=== PATIENT | female | born 1960 | race Caucasian/White ===

== ENCOUNTER 2023-12-05 19:46 | Emergency (ER) | payer MEDICARE, OTHER, SELFPAY ==
[2023-12-05] VITALS (7 sets, daily range): BP systolic 144–178; BP diastolic 78–89; PULSE 65–71; RESP 16–24; TEMP 36.9; O2SAT 93–96; BMI 27.4
--- NOTE | 2023-12-05 20:03 | DI.RAD.S_ITS ---
PROCEDURE: XR WRIST LT MIN 3V INDICATIONS: fall/injury/deformity TECHNIQUE: A total of 4 views of the wrist were acquired. COMPARISON: None. FINDINGS: Bones: No dislocations. No suspicious bony lesions. There is an impacted dorsally angulated comminuted intra-articular distal radius fracture but no definite distal ulna fracture is found. Soft tissues: No suspicious soft tissue calcifications. IMPRESSION: Colles'fracture distal radius. Intra-articular dorsal angulation morphology distortion. Dictated by: Sreekanth Barroso M.D. on 12/05/2023 at 20:46 Approved by: Sreekanth Barroso M.D. on 12/05/2023 at 20:47
[2023-12-05] MEDS: HYDROMORPHONE 0.5 MG INJ IV (22:29)
--- NOTE | 2023-12-05 23:55 | ED_ITS ---
HPI - Extremity Injury (Upper) General Chief Complaint: Extremity Injury, Upper Stated Complaint: lt wrist injury Time Seen by Provider: 12/05/23 22:06 Source: patient Mode of arrival: Ambulatory History of Present Illness HPI narrative: 63-year-old female was walking her dog who pulled away and tucked at her on the leash, causing her to fall forward into the side, complaining of left wrist area pain with significant swelling. She denies pain to her left clavicle, shoulder, upper arm, elbow, proximal forearm. No pain to her left fingers. She denies pain to her right upper extremity, and to both lower extremities. She also denies pain or injury to her head, neck, upper back, lower back, chest, abdomen, pelvis. She does not take blood thinner medications. She has not eaten for a number of hours. She has not had any problems with prior surgeries or procedures. Related Data Home Medications Medication Instructions Recorded Confirmed CA PANTOTHENATE/FOLIC ACID/VIT 1 PO AMINS ##0 07/02/11 (MULTIVITAMIN) Previous Rx's Medication Instructions Recorded oxycodone-acetaminophen 5 mg-325 1 tab PO Q6H PRN pain #20 tabs 12/06/23 mg tablet Allergies Allergy/AdvReac Type Severity Reaction Status Date / Time No Known Drug Allergies Allergy Verified 12/05/23 20:03 Review of Systems Review of Systems Narrative: per HPI Patient History Social History Smoking Status: Never smoker Smoking Status: Never smoker alcohol intake frequency: holidays/special occasions only Substance Use Type: does not use Exam Narrative Exam Narrative: GENERAL: Well-developed patient, in mild distress. HEAD: Atraumatic. Normocephalic. EYES: Pupils equal round and reactive. Extraocular motions intact. No scleral icterus. No injection or drainage. ENT: Nose without bleeding, purulent drainage. Throat without erythema, tonsillar hypertrophy or exudate. Airway patent. NECK: Trachea midline. Non tender CARDIOVASCULAR: Regular rate and rhythm without murmurs, gallops, or rubs. RESPIRATORY: Clear to auscultation. Breath sounds equal bilaterally. No wheezes, rales, or rhonchi. GASTROINTESTINAL: Abdomen soft, non-tender, nondistended. EXTREMITIES: Some swelling to left ring finger, ring removed. Some tenderness and swelling to left dorsal wrist, with some gross deformity. Distal cap refill fingers intact. Distal fingers intact to light touch. No tenderness to proximal left forearm, left elbow, left arm, left shoulder, left clavicle. No deformity right upper extremity or bilateral lower extremity. No edema or joint tenderness. BACK: Nontender without deformity or crepitance. No flank tenderness. NEURO: AOx3. SKIN: No rash or erythema of visible areas Initial Vital Signs Initial Vital Signs: Vital Signs Temperature 98.4 F 12/05/23 19:57 Pulse Rate 66 12/05/23 19:57 Respiratory Rate 16 12/05/23 19:57 Blood Pressure 178/89 H 12/05/23 19:57 Pulse Oximetry 96 12/05/23 19:57 Oxygen Delivery Method Room Air 12/05/23 19:57 Procedures Procedural Sedation Time of procedure: 01:08 Consent signed: Yes Time out performed: Yes Indication: fracture/dislocation reduction Presedation Evaluation: Low risk by past medical history, good open mouth jaw position, no anticipated difficult airway ASA Class: I Mallampati Airway Classification: Class I Time of Last PO Intake: 17:00 Preparation: court recording monitor applied, pulse oximeter, capnometry used, supplemental O2 applied, reversal agents at bedside, suction/airway equipment at bedside and IV secured IV Propofol dose (mg): 200 ED Sedation Level: Moderate (Concious) Patient Tolerated Procedure: Well Complications: none Additional Comments: Returned to preprocedure neuro baseline, tolerated procedure well. Course Orders Ordered: ED Orders 12/05/23 20:03 XR wrist LT min 3V Stat 12/06/23 00:43 XR wrist LT 2V Stat Discontinued Medications Hydromorphone HCl (Hydromorphone 0.5 Mg Inj) 0.5 mg IV NOW ONE Stop: 12/05/23 22:20 Last Admin: 12/05/23 22:29 Dose: 0.5 mg Documented By: AB Hydromorphone HCl (Hydromorphone 0.5 Mg Inj) 0.5 mg IV NOW ONE Stop: 12/06/23 01:33 Last Admin: 12/06/23 01:37 Dose: 0.5 mg Documented By: Sodium Chloride (Normal Saline 0.9%) 500 mls @ 1,000 mls/hr IV BOLUS ONE Stop: 12/06/23 02:14 Last Infusion: 12/06/23 01:08 Dose: Infused Documented By: Admin: 12/06/23 00:51 Dose: 1,000 mls/hr Documented By: Oxycodone/Acetaminophen (Oxycodone/Apap 5/325 Prepack) 1 bottle MISC DIRECTED ONE Stop: 12/06/23 01:15 Last Admin: 12/06/23 01:29 Dose: 1 bottle Documented By: Propofol (Propofol 200 Mg/20 Ml Vial) 135 mg 2 mg/kg (135 mg) IV NOW ONE Stop: 12/06/23 00:19 Last Admin: 12/06/23 00:34 Dose: 135 mg Documented By: Vital Signs Vital signs: Vital Signs - 8 hr 12/05/23 23:08 12/05/23 23:10 12/05/23 23:15 Pulse Rate 71 71 65 Respiratory Rate 24 16 16 Blood Pressure Pulse Oximetry 95 94 93 Oxygen Delivery Method 12/05/23 23:20 12/05/23 23:25 12/05/23 23:30 Pulse Rate 69 66 67 Respiratory Rate 20 16 17 Blood Pressure Pulse Oximetry 93 95 93 Oxygen Delivery Method 12/05/23 23:30 12/06/23 00:45 12/06/23 00:46 Pulse Rate 77 76 Respiratory Rate 21 21 Blood Pressure 144/78 H Pulse Oximetry 97 97 Oxygen Delivery Method 12/06/23 00:46 12/06/23 00:48 12/06/23 00:48 Pulse Rate 75 Respiratory Rate 19 Blood Pressure 174/83 H 154/81 H Pulse Oximetry 96 Oxygen Delivery Method 12/06/23 00:50 12/06/23 00:52 12/06/23 00:52 Pulse Rate 71 74 Respiratory Rate 16 19 Blood Pressure 123/74 Pulse Oximetry 93 93 Oxygen Delivery Method 12/06/23 00:55 12/06/23 00:56 12/06/23 00:56 Pulse Rate 70 73 Respiratory Rate 19 20 Blood Pressure 130/75 Pulse Oximetry 94 94 Oxygen Delivery Method 12/06/23 01:00 12/06/23 01:01 12/06/23 01:01 Pulse Rate 75 75 Respiratory Rate 30 H 19 Blood Pressure 165/91 H Pulse Oximetry 94 95 Oxygen Delivery Method 12/06/23 01:04 12/06/23 01:04 12/06/23 01:05 Pulse Rate 80 79 Respiratory Rate 23 19 Blood Pressure 136/72 Pulse Oximetry 89 L 88 L Oxygen Delivery Method 12/06/23 01:08 12/06/23 01:08 12/06/23 01:10 Pulse Rate 80 73 Respiratory Rate 33 H 19 Blood Pressure 145/82 H Pulse Oximetry 92 94 Oxygen Delivery Method 12/06/23 01:12 12/06/23 01:12 12/06/23 01:16 Pulse Rate 72 Respiratory Rate 21 Blood Pressure 163/84 H 163/94 H Pulse Oximetry 93 Oxygen Delivery Method 12/06/23 01:16 12/06/23 01:20 12/06/23 01:20 Pulse Rate 68 68 Respiratory Rate 22 17 Blood Pressure 182/90 H Pulse Oximetry 94 94 Oxygen Delivery Method 12/06/23 01:24 12/06/23 01:24 12/06/23 01:28 Pulse Rate 67 Respiratory Rate 22 Blood Pressure 161/93 H 169/98 H Pulse Oximetry 95 Oxygen Delivery Method 12/06/23 01:28 12/06/23 01:30 12/06/23 01:32 Pulse Rate 68 66 66 Respiratory Rate 9 L 9 L 20 Blood Pressure Pulse Oximetry 96 96 95 Oxygen Delivery Method 12/06/23 01:32 12/06/23 01:36 12/06/23 01:36 Pulse Rate 62 Respiratory Rate 19 Blood Pressure 174/97 H 172/97 H Pulse Oximetry 96 Oxygen Delivery Method 12/06/23 01:39 12/06/23 01:39 12/06/23 01:48 Pulse Rate 63 64 Respiratory Rate 16 15 Blood Pressure 172/92 H Pulse Oximetry 95 95 Oxygen Delivery Method Room Air 12/06/23 01:48 12/06/23 01:50 12/06/23 01:50 Pulse Rate 61 Respiratory Rate 15 Blood Pressure 170/98 H 179/97 H Pulse Oximetry 94 Oxygen Delivery Method MDM - Extremity Injury (Upper) Differential Diagnosis Differential diagnosis: Likely sprain and strain of wrist, fracture of wrist and Colles' fracture Lab Data Labs: Point of Care Testing Test Results Not applicable Imaging Data Extremity x-ray #1: My Impression: Distal left radius fracture with impaction and apex volar angulation, Colle's type fracture Radiologist's Impression: [address] [address] XRay Report Signed Patient: Lorna Samson MR#: [id number] : 1960 Acct:[id number] Age/Sex: 63 / F Date of Service: 12/05/23 Loc: ED Accession Number: [id number] Procedure: XR wrist LT min 3V Ordering Provider: Sam Abel MD PROCEDURE: XR WRIST LT MIN 3V INDICATIONS: fall/injury/deformity TECHNIQUE: A total of 4 views of the wrist were acquired. COMPARISON: None. FINDINGS: Bones: No dislocations. No suspicious bony lesions. There is an impacted dorsally angulated comminuted intra-articular distal radius fracture but no definite distal ulna fracture is found. Soft tissues: No suspicious soft tissue calcifications. IMPRESSION: Colles'fracture distal radius. Intra-articular dorsal angulation morphology distortion. Dictated by: Sreekanth Barroso M.D. on 12/05/2023 at 20:46 Approved by: Sreekanth Barroso M.D. on 12/05/2023 at 20:47 Extremity x-ray #2: Attestation: I personally reviewed and interpreted this imaging study as follows: My Impression: improved fracture fragment alignment Radiologist's Impression: [place] [address] XRay Report Signed Patient: Lorna Samson MR#: [id number] : 1960 Acct:[id number] Age/Sex: 63 / F Date of Service: 12/06/23 Loc: ED Accession Number: [id number] Procedure: XR wrist LT 2V Ordering Provider: Sam Abel MD PROCEDURE: XR WRIST LT 2V INDICATIONS: post reduction TECHNIQUE: 2 views of the wrist were acquired. COMPARISON: [facility], XR WRIST LT MIN 3V, 12/05/2023, 20:02. FINDINGS: Bones: No previously undiagnosed fractures or dislocations. No suspicious bony lesions. There has been significant improvement in the degree of malalignment after closed reduction and splinting Soft tissues: No suspicious soft tissue calcifications. IMPRESSION: Significant improvement in fracture malalignment after closed reduction. Dictated by: Sreekanth Barroso M.D. on 12/06/2023 at 1:33 Approved by: Sreekanth Barroso M.D. on 12/06/2023 at 1:34 MDM Narrative Medical decision making narrative: 63-year-old female with fall tripped by a dog who pulled away from her on leash, left Colles fracture, consent in 4 reduction and splinting, IV propofol, see procedure note, tolerated well, fracture fragments better alignment still with some displacement. Sugar-tong forearm wrist splint in place, sling applied. Follow up with local orthopedic surgery for likely ORIF definitive surgical stabilization. Contact information given for local orthopedic surgery on-call Dr. Nguyen. Home pack Percocet. Prescription Percocet sent to your pharmacy. Home with . Critical Care Time Critical Care Time Critical Care Time: Yes Total Critical Care Time: 35 Attestation: The high probability of a clinically significant, sudden or life threatening deterioration of the [cardiopulmonary, cerebrovascular, musculoskeletal] system(s) required my full and direct attention, intervention and personal management. The aggregate critical care time was [31] minutes. This time is in addition to time spent performing reported procedures but includes the following: [x] Data Review and interpretation [x] Patient assessment and monitoring of vital signs [x] Documentation [x] Medication orders and management Discharge Plan Departure Patient Disposition: Home Clinical Impression: Colles' fracture of left radius Activity Restrictions/Additional Instructions: Ground level fall from dog pulling on leash and tripping, left wrist pain and swelling with deformity. No open fracture. X-ray shows distal radius fracture with angulation and multiple fragments in impaction. IV sedation was done for splinting, and to better align pending definitive surgical stabilization with Orthopedic surgery. Follow up with Dr. Nguyen of Orthopedic surgery, call his office on Thursday. Take pain medications as needed. Keep elevated to decrease swelling, in splint and sling. You will likely need surgical stabilization and pinning of this angulated impacted fracture. Call office Orthopedic surgery on Thursday. Return to this/nearest emergency department for any change worsening symptoms or any concerns prior Prescriptions: New oxycodone-acetaminophen 5-325 mg tablet 1 tab PO Q6H PRN (Reason: pain) Qty: 20 0RF No Action CA PANTOTHENATE/FOLIC ACID/VIT (MULTIVITAMIN) 1 PO AMINS Qty: 0 Referrals: Priscilla Nguyen MD [Physician] - Stand Alone Forms: Patient Portal/API
[2023-12-06] VITALS (24 sets, daily range): BP systolic 123–182; BP diastolic 72–98; PULSE 61–80; RESP 9–33; O2SAT 88–97
[2023-12-06] MEDS: propofoL 200 MG/20 ML VIAL 135 MG IV (00:34)
--- NOTE | 2023-12-06 00:43 | DI.RAD.S_ITS ---
PROCEDURE: XR WRIST LT 2V INDICATIONS: post reduction TECHNIQUE: 2 views of the wrist were acquired. COMPARISON: [facility], CR, XR WRIST LT MIN 3V, 12/05/2023, 20:02. FINDINGS: Bones: No previously undiagnosed fractures or dislocations. No suspicious bony lesions. There has been significant improvement in the degree of malalignment after closed reduction and splinting Soft tissues: No suspicious soft tissue calcifications. IMPRESSION: Significant improvement in fracture malalignment after closed reduction. Dictated by: Sreekanth Barroso M.D. on 12/06/2023 at 1:33 Approved by: Sreekanth Barroso M.D. on 12/06/2023 at 1:34
[2023-12-06] MEDS: SODIUM CHLORIDE 0.9% 500 ML 1000 ML IV (00:51)
[2023-12-06] MEDS: OXYCODONE/APAP 5/325 PREPACK 1 BOTTLE MISC (01:29)
[2023-12-06] MEDS: HYDROMORPHONE 0.5 MG INJ IV (01:37)
--- NOTE | 2023-12-06 01:43 | PC.NURSE ---
IV sedation pushed during procedure as follows by Eric Wisdom: 0048 40 mg IVP 0053 40 mg IVP 0055 40 mg IVP 0056 40 mg IVP 0100 40 mg IVP Per provider all 200 mg of pulled vial given.
== END 2023-12-06 02:08 | disposition home or self-care (01) ==
PROVIDERS: Emergency Provider Emergency Medicine
DX: S52.532A Colles' fracture of left radius, initial encounter for closed fracture (principal); W01.0XXA Fall on same level from slipping, tripping and stumbling without subsequent striking against object, initial encounter
CPT/HCPCS: 25605; 36415; 73100; 73110; 99152; 99284; J1170; J2704